=== PATIENT | male | born 1930 | race Caucasian/White ===

== ENCOUNTER → 2017-05-22 | Outpatient (CLI) | payer OTHER ==
[~2017-05-22] MED LIST: NS 100 ML IV 100 ML IV ONE
[2017-05-22 11:22] LABS: CREATININE 1.27 mg/dL (0.70-1.30)
--- NOTE | 2017-05-22 13:32 | CT ---
HISTORY: COPD, weight loss, decreased appetite, previous hernia repair and hip replacement Study: CT chest abdomen and pelvis with contrast Comparison: None Technique: Multiple axial images of the chest, abdomen, and pelvis were obtained after the administra tion of IV contrast. Dose reduction techniques including Automated Exposure Control (AEC) and adjust ment of mA and kV were utilized. CT chest findings: There is atherosclerotic disease of the aorta and coronary arteries. No acute vascular abnormality is identified. Normal appearance of the heart and pericardium. The aorta appears normal in course and c aliber. There are mild diffuse centrilobular emphysematous changes present. There is scattered subseg mental atelectasis in the bilateral lung bases. There is a calcified nodule in the left upper lobe co mpatible with chronic granulomatous changes. No effusion or pneumothorax is identified. Airways are p atent. Multilevel spondylosis of the thoracic spine is noted. CT abdomen and pelvis findings: The liver, spleen, pancreas, kidneys, and adrenal glands are unremarkable in their CT appearance. The gallbladder is unremarkable. No renal calculi or hydronephrosis. No free intraperitoneal air. No evidence of intestinal obstruction or inflammation. There is a modera te to large volume of retained stool throughout the colon. The appendix is not clearly identified. No free fluid is seen. Oral contrast reaches the transverse colon. Multilevel degenerative changes of the lumbosacral spine are present. There are bilateral hip prosthe ses in place. Streak artifact limits evaluation of the pelvis. No pathologically enlarged lymph nodes are identified. The visualized portions of the urinary bladder are unremarkable. The prostate gland is obscured by artifact. There is moderate atherosclerotic disease of the aorta and branch vessels wi thout evidence of aneurysm. IMPRESSION CHEST: 1. Emphysematous changes. No acute disease. IMPRESSION ABDOMEN/PELVIS: 1. Moderate to large volume of retained stool suggesting constipation. 2. Chronic findings as described. Reported By:
== END | disposition home or self-care (01) ==
LOC: RAD 10:42
PROVIDERS: ATTEND Internal Medicine
DX: R63.4 Abnormal weight loss (principal); J44.9 Chronic obstructive pulmonary disease, unspecified; F17.290 Nicotine dependence, other tobacco product, uncomplicated
CPT/HCPCS: 36415; 71260; 74177; 82565; 84520; A4222